=== PATIENT | female | born 1990 | race Caucasian/White ===

== ENCOUNTER 2017-12-17 16:07 | Emergency (ER) | payer OTHER ==
[~2017-12-17] VITALS: Ht 170.2 cm; Wt 67.3 kg
[2017-12-17 16:14] VITALS: TEMP 99
[2017-12-17] MEDS ORDERED: BALANCE (18:01)
[2017-12-17] MEDS ORDERED: FLEXERIL5 MG PO (18:04)
[2017-12-17 18:10] VITALS: BP 109/71; PULSE 62
== END 2017-12-17 18:10 | disposition home or self-care (01) ==
LOC: COL.ER 16:07
DX: S80.02XA Contusion of left knee, initial encounter (principal); S13.4XXA Sprain of ligaments of cervical spine, initial encounter; F41.9 Anxiety disorder, unspecified; V89.2XXA Person injured in unspecified motor-vehicle accident, traffic, initial encounter
CPT/HCPCS: J1885; J2360